=== PATIENT | female | born 1940 | race Caucasian/White ===

== ENCOUNTER 2016-12-26 09:02 | Emergency (ER) | payer MEDICARE, BC ==
[~2016-12-26] VITALS: Ht 162.6 cm; Wt 81.8 kg
[2016-12-26] MEDS ORDERED: SOD CHLORIDE 0.9% 1,000 ML IV STA (09:08)
[2016-12-26 09:20] VITALS: Ht 162.6 cm; Wt 81.8 kg
[2016-12-26 09:41] LABS: ADD SCAN DIFF NO
[2016-12-26 09:45] LABS: ABNORMAL IP MESSAGE 1; BASOPHILS % 0.3 % (0.0-2.0); EOSINOPHILS # 0.5 10^3/ul (0.0-0.5); EOSINOPHILS % 6.6 % (0.0-7.0); HEMATOCRIT 36.6 % (37.0-47.0); HEMOGLOBIN 11.6 g/dl (12.0-16.0); LYMPHOCYTES # 0.4 10^3/ul (0.8-2.9); LYMPHOCYTES % 5.2 % (15.0-51.0); MEAN CORPUSCULAR HGB CONC 31.7 g/dl (32.0-37.0); MEAN CORPUSCULAR VOLUME 88.4 fl (82.0-101.0); MEAN PLATELET VOLUME 10.2 fl (7.4-10.4); MONOCYTE # 0.5 10^3/ul (0.3-0.9); MONOCYTES % 6.8 % (0.0-11.0); NEUTROPHIL # 5.6 10^3/ul (1.6-7.5); NEUTROPHILS % 80.7 % (39.0-77.0); PLATELET COUNT 200 10^3/UL (140-415); RED BLOOD COUNT 4.14 10^6/ul (4.20-5.40); RED CELL DISTRIBUTION WIDTH 15.7 % (11.5-14.5); WHITE BLOOD COUNT 6.9 10^3/ul (4.8-10.8)
[2016-12-26 09:47] LABS: ADD UMIC YES; URINE BILIRUBIN (Dip) NEGATIVE (NEGATIVE); URINE BLOOD (Dip) NEGATIVE (NEGATIVE); URINE COLOR YELLOW (YELLOW); URINE GLUCOSE (Dip) NEGATIVE (NEGATIVE); URINE KETONES (Dip) NEGATIVE (NEGATIVE); URINE LEUKOCYTE ESTERASE (Dip) NEGATIVE (NEGATIVE); URINE NITRITE (Dip) NEGATIVE (NEGATIVE); URINE TOTAL PROTEIN (Dip) TRACE (NEGATIVE); URINE UROBILINOGEN (Dip) 0.2 E.U./dL (0.1-1.0)
[2016-12-26 09:56] LABS: ALBUMIN 3.7 g/dl (3.3-4.9); CHLORIDE 98 mmol/L (97-110)
[2016-12-26 09:57] LABS: POTASSIUM 4.3 mmol/L (3.5-5.1); SODIUM 139 mmol/L (135-144)
[2016-12-26 09:58] LABS: SQUAMOUS EPITHELIAL CELL,UR MODERATE; URINE RBCS 0-2 /HPF (0)
[2016-12-26 09:59] LABS: ALANINE AMINOTRANSFERASE 110 IU/L (13-69); ALKALINE PHOSPHATASE 94 IU/L (42-121); AMYLASE 93 U/L (11-123); ASPARTATE AMINO TRANSFERASE 89 IU/L (15-46); BILIRUBIN,INDIRECT 0.7 mg/dl (0-1.1); BILIRUBIN,TOTAL 0.7 mg/dl (0.2-1.3); BLOOD UREA NITROGEN 21 mg/dl (7-20); CARBON DIOXIDE 28 mmol/L (21-31); CREATININE 0.67 mg/dl (0.44-1.00); GLUCOSE 175 mg/dl (70-220); TOTAL PROTEIN 6.7 g/dl (6.1-8.1)
[2016-12-26] MEDS ORDERED: MTF1000T PO (09:59)
[2016-12-26 10:00] LABS: ALBUMIN/GLOBULIN RATIO 1.23; ANION GAP 17 (8-16); CALCIUM 9.1 mg/dl (8.4-10.2)
[2016-12-26] MEDS ORDERED: GLIM1TAB2 PO ×2 (10:02)
[2016-12-26] MEDS ORDERED: LINA5TAB PO (10:02)
[2016-12-26] MEDS ORDERED: OMEP40CA6 PO (10:03)
[2016-12-26] MEDS ORDERED: EZET1TAB23 PO (10:03)
[2016-12-26] MEDS ORDERED: ASCO500C7 PO (10:04)
[2016-12-26] MEDS ORDERED: CALC-143 PO (10:04)
[2016-12-26] MEDS ORDERED: MULT-860 PO (10:05)
[2016-12-26] MEDS ORDERED: CHOL100062 PO (10:05)
[2016-12-26] MEDS ORDERED: MAGN400T28 PO (10:06)
[2016-12-26 10:14] LABS: TROPONIN-I < 0.012 ng/ml (0.00-0.12)
[2016-12-26] MEDS ORDERED: ACETAMINOPHEN 500 MG TAB PO STA (10:48)
[2016-12-26] MEDS ORDERED: IODIXANOL LOCM 100 ML BTL ONE ×3 (10:54)
[2016-12-26] MEDS ORDERED: IOHEXOL 300MG/ML 150 ML BTL ONE (10:54)
[2016-12-26] MEDS ORDERED: SOD CHLORIDE 0.9% 100 ML ONE ×2 (10:54)
[2016-12-26 11:30] VITALS: BP 118/57; PULSE 97; RESP 18; TEMP 98.9
--- NOTE | 2016-12-26 11:43 | RADRPT ---
PROCEDURE: XR Chest. CLINICAL INDICATION: Fever TECHNIQUE: A single AP view of the chest was obtained. COMPARISON: None. FINDINGS: No focal airspace opacification, pleural effusion or pneumothorax is seen. The cardiomediastinal si lhouette is within normal limits for size. Calcifications are seen within the aortic arch. The osseo us structures demonstrate chondroid calcifications within the left proximal humerus. IMPRESSION: 1. No radiographic evidence of acute cardiopulmonary disease. 2. Aortic atherosclerosis. 3. Chondroid calcifications within the left proximal humerus may reflect an enchondroma or bone inf arct. RPTAT: HH .Karly Pereira MD, MD Date Time Electronically viewed and signed by .Karly Pereira MD, on 12/26/2016 11:43 .G/
--- NOTE | 2016-12-26 11:50 | RADRPT ---
PROCEDURE: CT Abdomen and Pelvis with contrast. CLINICAL INDICATION: Fever, abdominal pain TECHNIQUE: CT scan of the abdomen and pelvis with contrast was performed utilizing axial tomograph ic images from the domes the diaphragm to the symphysis pubis. The patient was scanned post uncomp licated intravenous administration of 100 cc of Visipaque 320. Coronal and sagittal reformatted lane ges were obtained from the axial source images. Images were reviewed on a high-resolution PACS works tation. One or more of the following dose reduction techniques were used: Automated exposure control, Adjust ment of the mA and/or kV according to patient size, and/or Use of iterative reconstruction technique . The total exam CTDI equals 8.10 mGy and the total exam DLP equals 457.01 mGy-cm. COMPARISON: None. FINDINGS: The lung bases demonstrate mild bilateral basilar atelectatic changes. The liver is normal in size and contour. No focal intrahepatic masses are identified. There is no intra or extrahepatic bilia ry dilatation. The gallbladder is unremarkable by CT criteria. The spleen, pancreas, and adrenal g lands are unremarkable. The kidneys are symmetric in size and demonstrate normal enhancement. No hydronephrosis or hydroure ter is identified. There is a 3.5 cm cyst within the mid pole left kidney. The urinary bladder is u nremarkable. There is a small hiatal hernia. There is no evidence of bowel obstruction. No bowel wall thickening is identified. Diverticula are seen scattered throughout the colon without evidence of diverticuli tis. The appendix is normal in appearance. The uterus and adnexa are unremarkable. No intraperito dayanara free fluid, free air or abscess identified. No retroperitoneal, mesenteric, or inguinal adenopa thy is identified. The abdominal aorta and major branching vessels are normal in caliber and demonstrate vascular calci fications. The osseous structures demonstrate significant intervertebral disk space narrowing at L2 -3 and L5-S1 with vacuum disk phenomenon and discogenic endplate changes. No significant subcutane ous soft tissue abnormality is identified. IMPRESSION: 1. No acute intra-abdominal abnormality identified. 2. Small hiatal hernia. 3. 3.5 cm cyst within the mid pole left kidney. 4. Senescent changes with aortic atherosclerosis and degenerative changes of the spine. RPTAT: .Karly Pereira MD, MD Date Time Electronically viewed and signed by .Karly Pereira MD, MD on 12/26/2016 11:50 .G/
[2016-12-26] MEDS ORDERED: KETOROLAC 30 MG INJ IV STA (11:56)
[2016-12-26] MEDS ORDERED: ONDANSETRON 4 MG INJ IV STA (11:59)
[2016-12-26] MEDS ORDERED: morphine 2 MG INJ IV STA (11:59)
[2016-12-26] MEDS ORDERED: CEFTRIAXONE 1 GM/50 ML (PMX) 50 ML IVPB ONE (12:30)
[2016-12-26] MEDS ORDERED: NITR-58 PO (13:15)
[2016-12-26] MEDS ORDERED: PHEN-537 PO (13:15)
--- NOTE | 2016-12-26 13:35 | ERD ---
ER Documentation Chief Complaint Date/Time DATE: 12/26/16 TIME: 13:29 Chief Complaint BROUGHT IN VIA EMS DUE TO FLU LIKE SYMPTOMS, HX OF UTI HPI This is a very pleasant 76-year-old female visiting from [facility] with her and staying at her son's house. The patient indicates that 2 weeks ago she was diagnosed with a urinary tract infection. She had taken ciprofloxacin with no improvement of her symptoms. 6 days ago her primary care physician replaced her ciprofloxacin with Macrobid as the urine culture was resistant to ciprofloxacin. The patient indicates that her frequency urgency and dysuria began to return just prior to arrival with pain in her left lower quadrant. She states the pain is a dull achy sensation nonradiating. She indicates she had similar symptoms at the onset of her urinary tract infection 2 weeks ago. She is on her last dose of Macrobid today. She had a tactile fever with shaking and chills just prior to arrival and generalized myalgias. She denies a headache or changes in vision. She denied any hemoptysis hematemesis or melanotic stools. The patient has no shortness of breath at rest or exertion ROS All systems reviewed and are negative except as per history of present illness. Medications Home Meds Active Scripts Phenazopyridine Hcl* (Pyridium*) 100 Mg Tab, 100 MG PO TID Y for URINARY PAIN, # 20 TAB Prov:PARIS BANDA 12/26/16 Nitrofurantoin Monohyd Macrocr* (Macrobid*) 100 Mg Capsr, 100 MG PO BID for 10 Days, #20 CAP Prov:PARIS BANDA 12/26/16 Reported Medications Magnesium Oxide* (Magnesium Oxide*) 400 Mg Tablet, 400 MG PO DAILY, TAB 12/26/16 Cholecalciferol* (Vitamin D3*) 1,000 Unit Tablet, 2000 UNIT PO DAILY, TAB 12/26/16 Mu-Vits-Min Th/Lycopene/Lutein (CENTRUM SILVER TABLET) 1 Each Tablet, 1 EACH PO DAILY, TAB 12/26/16 Ascorbic Acid* (Vitamin C*) 500 Mg Capsule.sa, 500 MG PO DAILY, CAP 12/26/16 Calcium Citrate/Vitamin D (Citracal-Vitamin D 200 MG-250) 1 Each Tablet, 1 EACH PO DAILY, TAB 12/26/16 Ezetimibe/Simvastatin (Vytorin 10-10 mg Tablet) 1 Each Tablet, 1 EACH PO DAILY, TAB 12/26/16 Omeprazole* (Omeprazole*) 40 Mg Capsule.dr, 40 MG PO DAILY, #30 CAP 12/26/16 Glimepiride* (Glimepiride*) 1 Mg Tablet, 0.5 MG PO WITH DINNER, TAB 12/26/16 Glimepiride* (Glimepiride*) 1 Mg Tablet, 0.25 MG PO WITH BREAKFAST, TAB 12/26/16 Linagliptin (TRADJENTA) 5 Mg Tablet, 5 MG PO DAILY, TAB 12/26/16 Metformin* (Glucophage*) 1,000 Mg Tablet, 1000 MG PO BID, #60 TAB 12/26/16 Allergies Allergies: Coded Allergies: Sulfa (Sulfonamide Antibiotics) (Verified Allergy, Severe, 12/26/16) aspirin (Verified Allergy, Severe, 12/26/16) PMhx/Soc Hx Alcohol Use: Yes Hx Substance Use: No Hx Tobacco Use: No Smoking Status: Never smoker Physical Exam Vitals Vital Signs Date Time Temp Pulse Resp B/P Pulse Ox O2 Delivery O2 Flow Rate FiO2 12/26/16 11:30 98.9 97 18 118/57 97 Room Air 12/26/16 09:20 100.6 103 18 124/49 96 Physical Exam Constitutional:Well-developed. Well-nourished. HEENT:Normocephalic. Atraumatic.Pupils were equal round reactive to light. Moist mucous membranes.No tonsillar exudates. Neck: No nuchal rigidity. No lymphadenopathy. No posterior cervical spine tenderness or step-offs. Respiratory: Not using accessory muscles of respiration.Lungs were clear to auscultation bilaterally. No rhonchi. No rales. No wheezing. Cardiovascular: Regular rate regular rhythm.No murmurs. No rubs were appreciated.S1, S2 normal. Distal pulses are palpable 2+ bilaterally. GI: Abdomen was soft. Mild tenderness in the left lower. Non Distended. No pulsatile abdominal masses or bruits. No rebound. No guarding. Bowel sounds were present and normal. Muscle skeletal: Full range of motion of both the upper and lower extremities bilaterally.Normal muscle tone.No assymetrical calf tenderness or swelling. Skin: No petechia, no purpura. No lesions on the palms or the soles of the feet. No maculopapular rash. NEURO: Patient was alert, awake, orientated x3.No facial droop. Gait observed and normal with no ataxia.Speech had regular rate and rhythm. No focal neurological deficits. Result Diagram: 12/26/1630 12/26/16 0930 Results 24 hrs Laboratory Tests Test 12/26/16 09:20 12/26/16 09:30 12/26/16 11:32 Urine Color YELLOW Urine Clarity CLEAR Urine pH 5.5 Urine Specific [place] 1.015 Urine Ketones NEGATIVE Urine Nitrite NEGATIVE Urine Bilirubin NEGATIVE Urine Urobilinogen 0.2 E.U./dL Urine Leukocyte Esterase NEGATIVE Urine Microscopic RBC 0-2/HPF Urine Microscopic WBC 0-2/HPF Urine Squamous Epithelial Cells MODERATE Urine Hemoglobin NEGATIVE Urine Glucose NEGATIVE% Urine Total Protein TRACE White Blood Count 6.910^3/ul Red Blood Count 4.1410^6/ul Hemoglobin 11.6g/dl Hematocrit 36.6% Mean Corpuscular Volume 88.4fl Mean Corpuscular Hemoglobin 28.0pg Mean Corpuscular Hemoglobin Concent 31.7g/dl Red Cell Distribution Width 15.7% Platelet Count 01923^3/UL Mean Platelet Volume 10.2fl Neutrophils % 80.7% Lymphocytes % 5.2% Monocytes % 6.8% Eosinophils % 6.6% Basophils % 0.3% Nucleated Red Blood Cells % 0.0/100WBC Neutrophils # 5.610^3/ul Lymphocytes # 0.410^3/ul Monocytes # 0.510^3/ul Eosinophils # 0.510^3/ul Basophils # 0.010^3/ul Nucleated Red Blood Cells # 0.010^3/ul Sodium Level 139mmol/L Potassium Level 4.3mmol/L Chloride Level 98mmol/L Carbon Dioxide Level 28mmol/L Anion Gap 17 Blood Urea Nitrogen 21mg/dl Creatinine 0.67mg/dl Glucose Level 175mg/dl Lactic Acid Level 1.8mmol/L 1.4mmol/L Calcium Level 9.1mg/dl Total Bilirubin 0.7mg/dl Direct Bilirubin 0.00mg/dl Indirect Bilirubin 0.7mg/dl Aspartate Amino Transf (AST/SGOT) 89IU/L Alanine Aminotransferase (ALT/SGPT) 110IU/L Alkaline Phosphatase 94IU/L Troponin I < 0.012ng/ml Total Protein 6.7g/dl Albumin 3.7g/dl Globulin 3.00g/dl Albumin/Globulin Ratio 1.23 Amylase Level 93U/L Lipase 40U/L Current Medications Medications (Trade) Dose Ordered Sig/Jamila Route PRN Reason Start Time Stop Time Status Last Admin Dose Admin Sodium Chloride (NS) 1,000 ml @ 1,000 mls/hr Q1H STAT IV 12/26/16 09:08 12/26/16 10:07 DC 12/26/16 09:26 Acetaminophen (Tylenol Tab) 1,000 mg ONCE STAT PO 12/26/16 10:48 12/26/16 10:49 DC 12/26/16 11:11 IV Flush 10 ml 10 ml STK-MED ONCE .ROUTE 12/26/16 10:54 12/26/16 10:55 DC Sodium Chloride (NS) 100 ml @ ud STK-MED ONCE .ROUTE 12/26/16 10:54 12/26/16 10:55 DC Iohexol (Omnipaque 300mg/ ml) 150 ml STK-MED ONCE .ROUTE 12/26/16 10:54 12/26/16 10:55 DC IV Flush 10 ml 10 ml STK-MED ONCE .ROUTE 12/26/16 10:54 12/26/16 10:55 DC 12/26/16 11:18 Sodium Chloride (NS) 100 ml @ ud STK-MED ONCE .ROUTE 12/26/16 10:54 12/26/16 10:55 DC 12/26/16 11:18 Iodixanol (Visipaque Locm) 100 ml STK-MED ONCE .ROUTE 12/26/16 10:54 12/26/16 10:55 DC Iodixanol (Visipaque Locm) 100 ml STK-MED ONCE .ROUTE 12/26/16 10:54 12/26/16 10:55 DC Iodixanol (Visipaque Locm) 100 ml STK-MED ONCE .ROUTE 12/26/16 10:54 12/26/16 10:55 DC 12/26/16 11:20 Ketorolac Tromethamine (Toradol) 30 mg ONCE STAT IV 12/26/16 11:56 12/26/16 11:57 UNV Morphine Sulfate (morphine) 2 mg ONCE STAT IV 12/26/16 11:59 12/26/16 12:01 DC 12/26/16 12:13 Ondansetron HCl 4 mg 4 mg ONCE STAT IV 12/26/16 11:59 12/26/16 12:01 DC 12/26/16 12:12 Ceftriaxone Sodium (Rocephin) 50 ml @ 100 mls/hr ONCE ONCE IVPB 12/26/16 12:30 12/26/16 12:59 DC 12/26/16 12:50 Procedures/MDM This patient presented to the emergency department with abdominal pain and frequency urgency and dysuria. She was seen and evaluated by myself. My differential diagnosis included but was not limited to abdominal aortic aneurysm , appendicitis, pancreatitis, perforated peptic ulcer, perforated viscus, Boerhaaves syndrome or visceral pain such as diverticulitis, DKA, esophagitis, hepatitis or bowel obstruction. The patient was placed on a vehicle monitor technician, continuous pulse oximetry, and IV access was established by nursing staff. Blood cultures and urine cultures were obtained and the patient a low-grade fever treated with acetaminophen. Given that the patient had abdominal discomfort in the left lower quadrant I did obtain a CT scan of the abdomen which showed no diverticulitis, appendicitis or perforation. The patient had no leukocytosis. There is no electrolyte abnormalities. The patient had no pyuria leukocytes or nitrates on her urinalysis to suggest a urinary tract infection at this time. Influenza swab was negative. The patient had received intravenous morphine and Zofran for analgesic control. Lactic acid was normal and my clinical suspicion for sepsis was low. Observation Note: Time: 5 hours Family Hx: No Hypertension Evaluation: Multiple exams showed improving symptoms and no evidence of peritoneal signs, pneumonia or pyelonephritis. I did administer dose of IV ceftriaxone in the emergency department. The patient was very reliable and stated she will follow-up with her primary care physician and see urologist upon her return to [facility]. She was provided copies of all of her labs. She did request a further dose of Macrobid and she stated she felt this had improved her symptoms which was provided to the patient. 12 Lead EKG tracing ordered and reviewed by myself showed: Sinus tachycardia 104 bpm and no arrhythmia. IN interval normal. QRS duration normal. No ST segment elevation No ST segment depression. No changes consistent with acute ischemia. I did obtain a chest radiograph which showed no evidence of infiltrates pneumothorax or pleural effusion. The patient was discharged home in fair condition. They were instructed to return to the emergency department at any time if there was any worsening of their condition. The patient stated they would follow up with their PCP in the next 24-48 hours to initiate a suitable medication regimen under the care of their PCP as well as to allow their PCP to monitor any drug reactions. The patient was discharged home with prescriptions after they gave informed consent to the new medication. They were also fully informed by myself on the adverse effects and adverse drug interactions in order to provide adequate safeguards to prevent possible adverse reactions to medications. Departure Diagnosis: Primary Impression: Influenza-like symptoms Condition: Fair Patient Instructions: Urinary Tract Infections in Women PARIS BANDA Dec 26, 2016 13:35
--- NOTE | 2016-12-28 16:51 | QN ---
Documentation Comment Patient was asked to return to the emergency room for positive urine cultures. I did evaluate this patient's previous cultures and there are no susceptibilities or sensitivities, no bacteria has been identified except for gram-positive organisms. This patient was previously on Macrobid, and ciprofloxacin. Did prescribe this patient Keflex 500 g 3 times daily #30. I advised her to return immediately to the emergency room if she develops any fever chills or body pains. She verbalized understanding. I did advise her that after multiple outpatient therapy attempts she will likely need inpatient if she continues to have the symptoms. The patient states that she will return to the emergency room if she is not feeling better, does state that [place] at this time. BASIL MUNOZ DO Dec 28, 2016 16:51
== END 2016-12-26 16:03 | disposition home or self-care (01) ==
LOC: E/R 09:02
DX: R50.9 Fever, unspecified (principal); M79.1 Myalgia; R10.32 Left lower quadrant pain; Z79.84 Long term (current) use of oral hypoglycemic drugs
CPT/HCPCS: 71010; 74177; 80053; 81001; 82150; 83605; 83690; 84484; 85025; 87040; 87086; 87400; 93005; 96374; 96375; 99285; J0696; J2270; J2405; J7030; Q9967; 81003